=== PATIENT | female | born 1970 | race Two or more races ===

== ENCOUNTER → 2024-09-10 | Outpatient (CLI) | payer MEDICAID, SELFPAY ==
--- NOTE | 2024-09-10 11:45 | XR_ITS ---
Examination: Screening digital mammography, bilateral Computer aided detection 3-D breast Tomosynthesis, bilateral Date and time of exam: September 10, 1999 2512 noon Compared to mammograms dating to 05/19/2020 Indication: Screening Technique: Nonmagnified MLO, CC views of the breasts to been obtained, reconstructed from 3-D Tomosynthesis images. R2 computer aided detection program utilized for evaluation of suspicious masses and/or abnormal calcifications. 3-D Tomosynthesis images obtained. Findings: Scattered areas of fibroglandular density Benign calcifications No interval suspicious masses Impression: BI-RADS category II: Benign Findings. Recommend 1 year follow-up mammogram.
== END | disposition home or self-care (01) ==
PROVIDERS: PCP Physician Assistant; Referring Provider Physician Assistant; Visit Provider Physician Assistant
DX: Z12.31 Encounter for screening mammogram for malignant neoplasm of breast (principal); R92.323 Mammographic fibroglandular density, bilateral breasts; R92.1 Mammographic calcification found on diagnostic imaging of breast
CPT/HCPCS: 77063; 77067

== ENCOUNTER 2024-10-04 13:15 | Outpatient (AMB) | payer MEDICAID, SELFPAY ==
[2024-10-04 13:36] VITALS: BP 113/74; PULSE 91; RESP 18; TEMP 36.2; O2SAT 95; BMI 31.7
--- NOTE | 2024-10-04 13:36 | ORTHONT_ITS ---
Vital signs 10/04/24 13:36 Height 1.52 m Height Method Stated Weight 73.284 kg Weight Measurement Method Standing Scale BMI 31.7 BP 113/74 Blood Pressure Source Automatic Cuff Blood Pressure Location Right Upper Arm Position Sitting Respiration 18 Pulse 91 Pulse Source Monitor Temp 97.1 F Temp Source Temporal Artery Scan Pulse Oximetry (%) 95 Oxygen Delivery Method Room Air Med/Allergies Allergies & Medications Allergies No Known Allergies Allergy (Verified 10/04/24 13:37) Medication Reconciliation amlodipine 5 mg tablet 5 mg PO QDAY 09/20/19 [History Confirmed 10/04/24] cyclobenzaprine 10 mg tablet 10 mg PO QDAY 09/20/19 [History Confirmed 10/04/24] estradiol 2 mg tablet 2 mg PO QDAY 07/12/23 [History Confirmed 10/04/24] fluoxetine 10 mg capsule 10 mg PO QDAY 07/12/23 [History Confirmed 10/04/24] losartan 100 mg-hydrochlorothiazide 25 mg tablet 1 tab PO QDAY 07/12/23 [History Confirmed 10/04/24] meloxicam 7.5 mg tablet 7.5 mg PO BID #45 tabs 07/19/23 [Rx Confirmed 10/04/24] meloxicam 7.5 mg tablet 7.5 mg PO QDAY #45 tabs 10/04/23 [Rx Confirmed 10/04/24] Exam Exam Patient is in no acute distress and is cooperative with the examination today. Breathing is nonlabored. In no respiratory distress. Bilateral extremities were evaluated and demonstrates sensation intact to light touch. Palpable pedal pulses are present. No significant edema is present. Bilateral hips were examined. The patient has no pain with log roll of the hips. Internal rotation to 30 degrees and external rotation to 30 degrees is painless. Negative FADIR. The left knee was examined. The left knee is in varus alignment. Range of motion from 0-115 degrees. Knee is stable to varus and valgus as well as AP translation with <5mm. Patient has a negative McMurrays. There is no pain with patellofemoral compression and no crepitus noted. The knee is tender to palpation medially. The right knee was also examined. The right knee is in varus alignment. Range of motion from 0-120 degrees. Knee is stable to varus and valgus as well as AP translation with <5mm. Patient has a negative McMurrays. There is no pain with patellofemoral compression and no crepitus noted. The knee is tender to palpation medially \ Left knee x-rays were personally reviewed by me as well as right knee x-rays. This demonstrates significant joint space narrowing medially. There are significant osteophytes. Assessment and Plan Problem List (1) Unilateral primary osteoarthritis, left knee: Status: Acute Plan: Patient is a 52-year-old female with bilateral knee pain and osteoarthritis. We discussed nonoperative and operative options. She has failed conservative treatment on the left including NSAIDs, and multiple injections. We will plan for a left total knee replacement. We will also inject her right knee as it has been responding cortisone Recommend knee cortisone injection as patient would like to proceed with conservative treatment at this time. The risks and benefits of the procedure were reviewed with the patient and patient gave verbal consent to continue with the procedure. Procedure: performed by Dr. Reynoso Using sterile technique the Right knee was thoroughly prepped with alcohol, and approximately 1 cc of Kenalog 40 mg/mL and 4 cc of 1% lidocaine was injected without resistance into the medial tibial femoral joint space. The patient tolerated the procedure. The nature and purpose of the total knee replacement, alternative method(s) of treatment, the material risks involved, and the possibility of complications were fully explained to the patient. The patient does NOT have any of the following contraindications to TKA: - Active infection of the knee joint, OR - Active systemic bacteremia, OR - Active skin infection or open wound at surgical site, OR - Neuropathic arthritis, OR - Severe, rapidly progressive neurological disease, OR - Severe medical condition that makes risks of surgery outweigh the potential benefit The patient was told the most common risks and complications associated with a total knee replacement include, but are not limited to: blood clots in the leg, fatal pulmonary embolism, dislocation of the prosthesis, intraoperative and postoperative fractures of the femur or tibia, infection, failure of the prosthesis or grafting materials, complications from anesthesia, reactions to blood transfusions, postoperative leg length inequality, instability of the knee replacement, nerve damage or injury, vascular injury, delayed wound healing, infection, other injury or even . In addition, there are risks associated with anesthesia given during this operation. Also, the patient was told that after undergoing a total knee replacement there may still be persistent pain or disability. The patient was informed that the success of this operation in part depends upon the mechanical devices which are going to be implanted and that these devices can fail or malfunction, and may need to be repaired or replaced and there are no guarantees as to the longevity of this device or its parts and that it or its parts could fail prematurely. The patient was also notified that during the course of surgery, there may be a need to use bone graft from donors, and that any bone graft used will be carefully screened for communicable diseases, including AIDS, hepatitis, Braxton-Creutzfeldt, or other diseases, but despite the screening procedures, there is a small chance that they could contract one of these diseases. Finally, the patient was asked to follow completely and fully with all advice and recommended treatments, and that recovery and ultimate outcome are affected by their compliance with recommended treatment. We discussed the risks, benefits and treatment alternatives, and the patient is interested in proceeding with surgery. We will try to set this up as expeditiously as possible. (2) Arthritis of both knees: Status: Acute Office Procedures GNS Level of Care Nursing/Assessment Patient Status: Established Patient Nursing Assessment/Reassesment: Medication Reconciliation, Update PMH in EMR and Vital Signs Coordination of Care: Complex Care and Chronic Disease 1-5, Education Complex Pt/Fam, Consent,records obtained, informed consent, Results/Orders obtained and Staff clarify orders Special Needs: Language special needs Established Patient Charge Established Patient Point Assignment: 95 Established Patient Point Charge: EP Level 3 (80-115) Surgical Proc/IM SQ injection Major Surgical Procedure: Yes (KNEE INJECTION) Medication Given Medication Given Medication Given: Yes Documented Dose Given: 4 Route: Infiitration Medication Given Medication Given Medication Given: Yes Documented Dose Given: 1 Route: Infiitration Office Meds Xylocaine 10 mg/mL (1 %) injection solution Performing Provider: Jose Reynoso MD Performing Location: [facility] Administered by: Jose Reynoso MD on 10/04/24 14:22 Dose Route Admin Location Dispensed Lot Number Expiration Date [facility] 20 mL Infiltration 20 mL triamcinolone acetonide 40 mg/mL suspension for injection Performing Provider: Jose Reynoso MD Performing Location: [facility] Administered by: Jose Reynoso MD on 10/04/24 14:22 Dose Route Admin Location Dispensed Lot Number Expiration Date [facility] 40 mg intra-articular RIGHT KNEE 1 mL [id number] 12/20/25 2492-2771-40 [facility] [place] Intake Visit Data Collection New Patient or Established: Established Patient (seen at [facility] within 3 years) Reason for Visit:: KNEE PAIN Seen by Clinical Staff ONLY (RN/MA): No Verbal consent obtained for Telemed visit?: No 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 PCP or OBGYN visit in last 3 months: Yes Hx Now: No Do You Feel Safe at Home: Yes Authorities Contacted: N/A Questionairres Past Medical History Past Medical History Have you ever been diagnosed with any of the following: Neurological Problems Seizures: No Cardiology Problems Congestive Heart Failure: No Hypertension: Yes Hypotension: Yes Respiratory Problems Chronic Obstructive Pulmonary Disease (COPD): No Genital/Urinary Problems Renal Disease: No Musculoskeletal Problems Arthritis: Yes Endocrine Problems Diabetes Mellitus Type 1: No Diabetes Mellitus Type 2: No Psychologic Problems Anxiety: Yes Other Problems Blood Transfusions: No Anesthesia Reactions: No Cancer: No Surgical History Hysterectomy: Yes Subjective Visit Visit for: follow up visit and knee Immunization / Flu Flu Vaccine in the Last 12 Months: Yes Flu Vaccine Exclusion Criteria: No Exclusion Criteria History of Present Illness Chief complaint: KNEE PAIN Chava is a pleasant 52-year-old female that presents today for evaluation of her bilateral knees. The pain has been ongoing for a while. She previously tried multiple injections in the left knee. She has tried anti-inflammatories that irritate her stomach. She is also tried physical therapy. The left knee pain is worse than the right. She has no diabetes. The last injections did not work on the left but helped for the right. She has also tried NSAIDS. Personal History Red flag PMH: BMI BMI Counceling provided: Yes Pain Pain level (0-10): 10 Pain duration: ALL DAY Pain location: inside (medial), outside (lateral) and anterior Pain quality: sharp, dull and aching Pain timing: increases with activity Associated signs & symptoms: numbness and stiffness Review of Systems Review of Systems: All systems negative unless otherwise noted in HPI.
== END 2024-10-04 14:02 | disposition home or self-care (01) ==
LOC: HODSRG 13:15
PROVIDERS: PCP Physician Assistant; Referring Provider Physician Assistant; Supervising Provider Orthopaedic Surgery Adult Reconstructive Orthopaedic Surgery; Visit Provider Orthopaedic Surgery Adult Reconstructive Orthopaedic Surgery
DX: M17.0 Bilateral primary osteoarthritis of knee (principal); M25.562 Pain in left knee; M25.561 Pain in right knee; I10 Essential (primary) hypertension
CPT/HCPCS: 20610; 99213; J3301; J3490; G0463

== ENCOUNTER → 2024-10-30 | Outpatient (CLI) | payer MEDICAID, SELFPAY ==
--- NOTE | 2024-10-30 09:00 | XR_ITS ---
EXAMINATION: XR barium enema w/air contrast HISTORY: 54-year-old with possible colonic lesions and right upper quadrant pain x6 months COMPARISON: CT abdomen pelvis of 10/11/2014. TECHNIQUE: Initial private equity associate radiograph of the abdomen and pelvis was performed. A smallbore tube was placed into the rectum. The colon was then filled retrograde with 1440 cc of Gastrografin via gravity under fluoroscopy. Following this, air was injected to create double contrast appearance. Multiple spot radiographs of the abdomen and pelvis in different obliquities were then performed after gravity drainage of contrast. Examination is suboptimal as per rectum barium was not available. FLUOROSCOPY TIME: 4.2 min AIR KERMA: 495.08 mGy FINDINGS: Group Insurance Special Agent radiograph demonstrates nonobstructive bowel gas pattern. There are no abnormal calcifications. There are moderate degenerative changes of the lumbar spine with some mild levoconvex curvature. There is no pneumoperitoneum identified. No strictures identified. No internal or external mass effect. Contrast extends into the nondilated appendix. Normal haustral folds identified. Contrast refluxes into the terminal ileum. IMPRESSION: 1. No stricture, internal mass effect, or external mass effect. 2. Recommend correlation with direct visualization versus CT colonography
== END | disposition home or self-care (01) ==
PROVIDERS: PCP Physician Assistant; Referring Provider Internal Medicine Gastroenterology; Visit Provider Internal Medicine Gastroenterology
DX: Z12.11 Encounter for screening for malignant neoplasm of colon (principal); R10.11 Right upper quadrant pain; R10.13 Epigastric pain
CPT/HCPCS: 74280; Q9963

== ENCOUNTER 2025-01-04 08:43 | Outpatient (AMB) | payer MEDICAID, SELFPAY ==
[2025-01-04 08:57] VITALS: BP 125/84; PULSE 93; RESP 18; TEMP 36.4; O2SAT 92; BMI 32.0
--- NOTE | 2025-01-04 08:57 | PD.ORTHCLVIS ---
Vital signs 01/04/25 08:57 Height 1.52 m Height Method Stated Weight 74.049 kg Weight Measurement Method Standing Scale BMI 32.0 BP 125/84 Blood Pressure Source Automatic Cuff Blood Pressure Location Left Upper Arm Position Sitting Respiration 18 Pulse 93 Pulse Source Monitor Temp 97.5 F Temp Source Temporal Artery Scan Pulse Oximetry (%) 92 L Oxygen Delivery Method Room Air Med/Allergies Allergies & Medications Allergies No Known Allergies Allergy (Verified 01/04/25 08:58) Exam Exam Patient is in no acute distress and is cooperative with the examination today. Breathing is nonlabored. In no respiratory distress. Bilateral extremities were evaluated and demonstrates sensation intact to light touch. Palpable pedal pulses are present. No significant edema is present. Bilateral hips were examined. The patient has no pain with log roll of the hips. Internal rotation to 30 degrees and external rotation to 30 degrees is painless. Negative FADIR. The left knee was examined. The left knee is in varus alignment. Range of motion from 0-115 degrees. Knee is stable to varus and valgus as well as AP translation with <5mm. Patient has a negative McMurrays. There is no pain with patellofemoral compression and no crepitus noted. The knee is tender to palpation medially. The right knee was also examined. The right knee is in varus alignment. Range of motion from 0-120 degrees. Knee is stable to varus and valgus as well as AP translation with <5mm. Patient has a negative McMurrays. There is no pain with patellofemoral compression and no crepitus noted. The knee is tender to palpation medially \ Left knee x-rays were personally reviewed by me as well as right knee x-rays. This demonstrates significant joint space narrowing medially. There are significant osteophytes. Assessment and Plan Problem List (1) Unilateral primary osteoarthritis, left knee: Status: Acute Plan: Patient is a 52-year-old female with bilateral knee pain and osteoarthritis. We discussed nonoperative and operative options. She has failed conservative treatment on the left including NSAIDs, and multiple injections. We will plan for a left total knee replacement. She has failed conservative treatment occluding injections and formal physical therapy The nature and purpose of the total knee replacement, alternative method(s) of treatment, the material risks involved, and the possibility of complications were fully explained to the patient. The patient does NOT have any of the following contraindications to TKA: - Active infection of the knee joint, OR - Active systemic bacteremia, OR - Active skin infection or open wound at surgical site, OR - Neuropathic arthritis, OR - Severe, rapidly progressive neurological disease, OR - Severe medical condition that makes risks of surgery outweigh the potential benefit The patient was told the most common risks and complications associated with a total knee replacement include, but are not limited to: blood clots in the leg, fatal pulmonary embolism, dislocation of the prosthesis, intraoperative and postoperative fractures of the femur or tibia, infection, failure of the prosthesis or grafting materials, complications from anesthesia, reactions to blood transfusions, postoperative leg length inequality, instability of the knee replacement, nerve damage or injury, vascular injury, delayed wound healing, infection, other injury or even . In addition, there are risks associated with anesthesia given during this operation. Also, the patient was told that after undergoing a total knee replacement there may still be persistent pain or disability. The patient was informed that the success of this operation in part depends upon the mechanical devices which are going to be implanted and that these devices can fail or malfunction, and may need to be repaired or replaced and there are no guarantees as to the longevity of this device or its parts and that it or its parts could fail prematurely. The patient was also notified that during the course of surgery, there may be a need to use bone graft from donors, and that any bone graft used will be carefully screened for communicable diseases, including AIDS, hepatitis, Braxton-Creutzfeldt, or other diseases, but despite the screening procedures, there is a small chance that they could contract one of these diseases. Finally, the patient was asked to follow completely and fully with all advice and recommended treatments, and that recovery and ultimate outcome are affected by their compliance with recommended treatment. We discussed the risks, benefits and treatment alternatives, and the patient is interested in proceeding with surgery. We will try to set this up as expeditiously as possible. (2) Arthritis of both knees: Status: Acute Office Procedures GNS Level of Care Nursing/Assessment Patient Status: Established Patient Nursing Assessment/Reassesment: Medication Reconciliation, Update PMH in EMR and Vital Signs Coordination of Care: Complex Care and Chronic Disease 1-5, Education Complex Pt/Fam, Consent,records obtained, informed consent, Results/Orders obtained and Staff clarify orders Special Needs: Language special needs Established Patient Charge Established Patient Point Assignment: 95 Established Patient Point Charge: EP Level 3 (80-115) MA Intake Visit Data Collection New Patient or Established: Established Patient (seen at [facility] within 3 years) Reason for Visit:: PRE OP L TKA Seen by Clinical Staff ONLY (RN/MA): No 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 PCP or OBGYN visit in last 3 months: Yes Hx Now: No Do You Feel Safe at Home: Yes Authorities Contacted: N/A Questionairres Past Medical History Past Medical History Have you ever been diagnosed with any of the following: Neurological Problems Seizures: No Cardiology Problems Congestive Heart Failure: No Hypertension: Yes Hypotension: Yes Respiratory Problems Chronic Obstructive Pulmonary Disease (COPD): No Genital/Urinary Problems Renal Disease: No Musculoskeletal Problems Arthritis: Yes Endocrine Problems Diabetes Mellitus Type 1: No Diabetes Mellitus Type 2: No Psychologic Problems Anxiety: Yes Other Problems Blood Transfusions: No Anesthesia Reactions: No Cancer: No Surgical History Hysterectomy: Yes Subjective Visit Visit for: follow up visit and knee Immunization / Flu Flu Vaccine in the Last 12 Months: Yes Flu Vaccine Exclusion Criteria: No Exclusion Criteria History of Present Illness Chief complaint: KNEE PAIN Chava is a pleasant 52-year-old female that presents today for evaluation of her bilateral knees. The pain has been ongoing for a while. She previously tried multiple injections in the left knee. She has tried anti-inflammatories that irritate her stomach. She has also tried physical therapy. The left knee pain is worse than the right. Her previous surgery was denied on the left knee because the insurance denied it because they confused the right and left knee. She has been 3 months without an injection She has no diabetes. The last injections did not work on the left but helped for the right. She has also tried NSAIDS. Personal History Red flag PMH: BMI BMI Counceling provided: Yes Pain Pain level (0-10): 10 Pain duration: ALL DAY Pain location: inside (medial), outside (lateral) and anterior Pain quality: sharp, dull and aching Pain timing: increases with activity Associated signs & symptoms: numbness and stiffness Review of Systems Review of Systems: All systems negative unless otherwise noted in HPI.
== END 2025-01-04 09:18 | disposition home or self-care (01) ==
LOC: HODSRG 08:43
PROVIDERS: PCP Physician Assistant; Referring Provider Physician Assistant; Supervising Provider Orthopaedic Surgery Adult Reconstructive Orthopaedic Surgery; Visit Provider Orthopaedic Surgery Adult Reconstructive Orthopaedic Surgery
DX: M17.0 Bilateral primary osteoarthritis of knee (principal); M25.562 Pain in left knee; M25.561 Pain in right knee; I10 Essential (primary) hypertension
CPT/HCPCS: 99213; G0463

== ENCOUNTER → 2025-01-04 | Outpatient (CLI) | payer MEDICAID, SELFPAY ==
--- NOTE | 2025-01-04 09:55 | XR_ITS ---
Examination: CT left lower extremity, without contrast. 2-D sagittal reconstructions. 2-D coronal reconstructions. 3-D reconstructions. Date and time of exam:January 04, 2025 10:18 AM INDICATIONS: Diagnosis unilateral primary osteoarthritis left knee left knee pain 10 years CTDI: vol (mGy):10.4 DLP: (mGycm):788 Technique: Multiple 1.25 mm axial sections of the left lower extremity without intravenous contrast have been obtained. 2-D sagittal and coronal reconstructions have been obtained. 3-D reconstructions have been obtained. Low dose protocols were performed. One or more of the following dose reduction techniques were used; automated exposure control, adjustment of the mA and/or KV according to patient size, use of iterative reconstruction technique. Findings: Moderate osteopenia Mild to moderate narrowing left hip joint No left hip fracture Severe narrowing medial joint space left knee Advanced osteoarthritis also lateral and patellofemoral joints No knee fractures IMPRESSION: Advanced left knee tricompartment osteoarthritis including severe narrowing medial joint space
== END | disposition home or self-care (01) ==
PROVIDERS: PCP Physician Assistant; Referring Provider Orthopaedic Surgery Adult Reconstructive Orthopaedic Surgery; Visit Provider Orthopaedic Surgery Adult Reconstructive Orthopaedic Surgery
DX: M17.12 Unilateral primary osteoarthritis, left knee (principal); M25.862 Other specified joint disorders, left knee
CPT/HCPCS: 73700

== ENCOUNTER 2025-01-23 05:50 | Day surgery (SDC) | payer MEDICAID, SELFPAY ==
[2025-01-22 07:04] VITALS: BMI 35.6
[2025-01-22 09:54] LABS: Basophils % (Auto) 0 % (0-2.5); Eosinophils # (Auto) 0.3 Thou/mm3 (0.0-0.5); Eosinophils % (Auto) 3 % (0-10); Hematocrit 36.1 % (36.0-46.0); Hemoglobin 11.7 g/dL (12.0-16.0); Immature Granulocytes % (Auto) 0 % (0-0); Immature Granulocytes Auto 0.01 Thou/mm3 (0.00-0.00); Lymphocytes # (Auto) 2.7 Thou/mm3 (1.0-4.8); Lymphocytes % (Auto) 36 % (10-50); Mean Corpuscular HGB Conc 32.4 g/dl (31.0-37.0); Mean Corpuscular Hemoglobin 30.5 pg (25.0-35.0); Mean Corpuscular Volume 94 fL (80-100); Monocytes # (Auto) 0.5 Thou/mm3 (0.0-0.8); Monocytes % (Auto) 7 % (0-12); Neutrophils # (Auto) 3.9 Thou/mm3 (1.8-7.7); Neutrophils % (Auto) 53 % (37-80); Nucleated Red Blood Cell % 0 /100 WBC (0); Platelet Count 288 Thou/mm3 (140-440); Red Blood Count 3.84 Miln/mm3 (4.00-5.20); White Blood Count 7.4 Thou/mm3 (3.6-11.0)
[2025-01-22 09:57] LABS: INR 0.9 (0.9-1.3); Partial Thromboplastin Time 28.5 Seconds (22.0-36.0); Prothrombin Time 10.3 Seconds (9.0-12.2)
[2025-01-22 10:22] LABS: Alanine Aminotransferase 14 U/L (10-49); Albumin, Serum 4.1 gm/dL (3.5-5.0); Alkaline Phosphatase 72 U/L (46-116); Anion Gap 8 (7-16); Aspartate Amino Transferase 14 U/L (0-34); BUN/Creatinine Ratio 25 Ratio (12-20); Bilirubin,Total 0.4 mg/dL (0.3-1.2); Blood Urea Nitrogen 15 mg/dL (9-23); Calcium 9.3 mg/dL (8.3-10.6); Calcium (Corrected) 9.3 mg/dL (8.5-10.1); Carbon Dioxide 30.5 mMol/L (20.0-31.0); Chloride 100 mMol/L (98-107); Creatinine (Component) 0.6 mg/dL (0.6-1.3); Estimated Creatinine Clearance 87.6 mL/min (>60); Globulin 2.1 gm/dL (2.3-3.5); Glucose 98 mg/dL (74-106); Osmolality,Calculated 276 (275-295); Potassium 3.5 mMol/L (3.4-5.1); Sodium 138 mMol/L (136-145); Total Protein 6.2 gm/dL (5.7-8.2); eGFR > 60 See Note
--- NOTE | 2025-01-22 14:11 | SUR.PREOP ---
Pt notified to come in tomorrow at 0545.
[2025-01-23] VITALS (17 sets, daily range): BP systolic 98–127; BP diastolic 60–85; PULSE 78–108; RESP 13–20; TEMP 36.2–36.8; O2SAT 90–97; BMI 34.3; BMI 15.0
[2025-01-23] MEDS: MELOXICAM 7.5 MG TABLET PO (06:36)
[2025-01-23] MEDS: PREGABALIN 75 MG CAPSULE PO (06:36)
[2025-01-23] MEDS: ACETAMINOPHEN 325 MG TABLET 650 MG PO (06:37)
--- NOTE | 2025-01-23 09:02 | PD.SUROPNT ---
Date of Procedure 01/23/25 Pre Op Diagnosis left knee osteoarthritis Post Op Diagnosis left knee osteoarthritis Procedure left total knee replacement Findings full thickness cartilage loss and osteophytes Procedure Description Indication: The patient is a 54 year old who has a long history of left knee pain. X-rays show degenerative arthritis involving the knee. Over the past several years the patient has had increasing pain, progressive limitation in function. He has failed conservative measures including activity modification, physical therapy, injections, anti-inflammatories, and assistive devices. After a lengthy discussion of the risks and benefits, the patient presents now for total knee replacement. The nature and purpose of the total knee replacement, alternative method(s) of treatment, the material risks involved, and the possibility of complications were fully explained to the patient. The patient was told the most common risks and complications associated with a total knee replacement include, but are not limited to blood clots in the leg, fatal pulmonary embolism, dislocation of the prosthesis, intraoperative and postoperative fractures of the femur or tibia, infection, failure of the prosthesis or grafting materials, complications from anesthesia, reactions to blood transfusions, postoperative leg length inequality, instability of the knee replacement, nerve damage or injury, vascular injury, delayed wound healing, infections, other injury or even . In addition, there are risks associated with anesthesia given during this operation, temporary or permanent numbness on the skin lateral to the incision can be a complication unique to total knee surgery, and kneeling can be painful after knee replacement surgery. Also, the patient was told that after undergoing a total knee replacement there may still be pain or disability. We discussed with the patient that we will be using a robot-assisted technology. We discussed that there is a possibility of converting to manual instrumentation. The patient was informed that the success of this operation in part depends upon the mechanical devices which are going to be implanted and that these devices can fail or malfunction, and may need to be repaired or replaced and there are no guarantees as to the longevity of this device or its part and that it or its parts could fail prematurely. Finally, the patient was asked to follow completely and fully with all advice and recommended treatments, and that recovery and ultimate outcome are affected by their compliance with recommended treatment. Surgical technique: Patient was marked and consented in the pre-operative area. The patient was brought to the operating room and placed on the operating table in a supine position. Prior to positioning, a timeout procedure was performed between the surgeon, the anesthesiologist, and the nursing staff where the patient and the operative side were identified and confirmed. After adequate general anesthetic was obtained, the left lower extremity was prepped and draped in the usual sterile fashion. A weight based dose of Cefazolin were administered within 1 hour prior to incision. The robot was preregistered and calirated before the incision. The extremity was exsanguinated with an esmarch badge and tourniquet inflated to 250mmHg. A midline incision was made. A median parapatellar arthrotomy was made. The patella was subluxed laterally. A medial release was performed to expose the medial tibia. His femoral and tibial pins were placed through an intra incisional manner for both cases. Every effort was made to ensure that the distalmost aspect of the pin was hung in the second cortex. The arrays were then tightened several times to ensure that it was fixed for the remainder of the case. Both femoral and tibial checkpoints were then placed. We then went through the registration process of the bone. We then assessed the knee deformity and attempted to correct it. We also used the robot to aid in judging laxity in both extension and flexion. Final based on laxity and alignment we changed the preoperative assessment to obtain proper proper implant positioning and to correct deformity. Attention was then placed to the tibia. We made a tibial cut using the robot ensuring that both the MCL and the patella tendon were protected with retractors. We then went to the femur and made the posterior cut followed by the anterior cut and the anterior chamfer. The bone was then removed and we made a distal femur cut and a posterior chamfer cut. We verified all cuts. A trial reduction was performed with a size 1 femoral component and a size 1 keeled tibial component. The patella tracked centrally, and no lateral retinacular release was necessary. The trial implants were removed. The arrays, pins, and checkpoints were all removed. We performed a verification that all pins were removed. The cut bone surfaces were lavaged. A size 1 left femoral component, a size 1 keeled tibial component were impacted into position. The knee was felt to be well balanced in the sagittal and coronal plane. The final [2x12] mm cruciate-substituting articular insert was impacted into the tibial tray. The knee was brought out to full extension, flexed up to 120 degrees. It was stable to varus and valgus stress and appropriately balanced in flexion and extension. The wounds were copiously irrigated following deflation of tourniquet. The medial retinaculum was reapproximated with #1 vicryl and quill. The subcutaneous tissues were closed with 0 and 2-0 interrupted Vicryl. The skin was closed with 3-0 Monofilament V loc suture. A sterile dressing was applied. The patient was transferred to a bed and brought to recovery in stable condition. The patient tolerated the procedure well. There were no intraoperative complications. Sponge and needle counts were correct times 2. As the attending surgeon, Laverne artis I was present and performed the entire operation. Grafts/Implants Size 1 CR Femur Size 1 Tibia 10mm poly CS Anesthesia spinal Implants claudia Pathology / specimen None Pathology comment: none Estimated Blood Loss 150 Condition Stable Disposition same day Surgeon Jose Reynoso MD Surgical Staff Operation Date: 01/23/25 07:30 Case Staff Anesthesiologist: Pravin Pfeiffer RNvocal music teacher: Elin Hsieh
--- NOTE | 2025-01-23 09:04 | XR_ITS ---
Examination: Left knee 2 views Technique one AP lateral left knee 2 views supine Date and time: January 23, 2025 0948 hours INDICATIONS: Postop knee replacement FINDINGS: Total left knee replacement Satisfactory alignment Moderate osteopenia No fracture IMPRESSION: Total left knee arthroplasty with satisfactory alignment
--- NOTE | 2025-01-23 09:22 | SUR.PHASEI ---
0922: Pt. AAOx4, vitals stable, breathing unlabored, no complaint of pain or nausea, dressing to left knee CDI, no active bleed noted, pt. able to move bilateral feet, cap refill to bilateral feet less than 3 seconds, bilateral dorsalis pedis pulses strong and regular, report received from MD Pfeiffer and Alan SY.
--- NOTE | 2025-01-23 10:10 | SUR.PHASEII ---
1010: Report given to Becky SY to resume care. Pt. AAOx4, vitals stable, breathing unlabored, no complaint of pain or nausea, dressing to left knee CDI, no active bleed noted.
--- NOTE | 2025-01-23 10:17 | SUR.PHASEII ---
1010: Assumed care. Pt retin
--- NOTE | 2025-01-23 10:18 | SUR.PHASEII ---
1010: Assumed care. Pt resting with no complaints voiced. Pt awake, alert. VS stable. Dressing to left knee dry, clean, intact. Bilateral pedal pulses strong, regular. Pt has sensation to left foot and can wiggle foot. Pt tolerating po fluids with no difficulty swallowing and no n/v.
--- NOTE | 2025-01-23 11:20 | SUR.PHASEII ---
1110: Pt needing to void. Refused to use bedpan. Stated she had total feeling to legs. Attempted to sit on edge of bed. Pt slid down to floor. Staff at side and assisted pt to floor. Pt denies any injury. Pt voided on self unable to hold urine. Pt assisted back on gurney and clean bedding and gown provided. Will provide external catheter.
--- NOTE | 2025-01-23 12:32 | SUR.PHASEII ---
1230: Pt has been resting with no complaints voiced. VS stable. Dressing remains dry, clean, intact. Bilateral pedal pulses strong, regular. Pt sitting up tolerating lunch meal with no difficulty swallowing and no n/v.
--- NOTE | 2025-01-23 13:13 | SUR.PHASEII ---
1310: Pt has been resting with no complaints voiced. VS stable. Pt consumed 100% of lunch meal.
--- NOTE | 2025-01-23 13:38 | SUR.PHASEII ---
1335: Physical Therapist here to assess pt.
--- NOTE | 2025-01-23 13:50 | SUR.PHASEII ---
pt awake, alert, able to follow commands, pt sitting up in bed working with Physical Therapist Royer, report from Becky SY
--- NOTE | 2025-01-23 13:55 | SUR.PHASEII ---
pt cleared from Physical Therapy, will review discharge instructions with pt and spouse
--- NOTE | 2025-01-23 14:14 | SUR.PHASEII ---
Discharge instructions given using telephone podiatric technician Flaco ID# [id number], all questions answered, pt and spouse verbalize understanding of discharge instructions. Report to Becky SY
--- NOTE | 2025-01-23 17:02 | SUR.PHASEII ---
1416: Pt provided with discharge instructions by Josue SY and engraver picture via phone line. Pt discharged from [facility] in stable condition.
--- NOTE | 2025-01-26 11:36 | PD.ANESPROG ---
Documentation for date of: 01/26/25 POST ANESTHESIA NOTE: Patient had spinal anesthesia and L adductor block for L TKA on 01/23/15. I called her number for follow up but no answer. Pravin Pfeiffer MD Anesthesia Progress Note Progress Note Most recent Vital Signs: Last Vital Signs Temp 97.8 F 01/23/25 13:30 Pulse 108 H 01/23/25 13:30 Resp 14 01/23/25 13:30 BP 122/85 H 01/23/25 13:30 Pulse Ox 95 01/23/25 13:30 O2 Flow Rate 2 01/23/25 10:45
== END 2025-01-23 14:16 | disposition home or self-care (01) ==
PROVIDERS: Anesthesiology; PCP Physician Assistant; Referring Provider Orthopaedic Surgery Adult Reconstructive Orthopaedic Surgery; Visit Provider Orthopaedic Surgery Adult Reconstructive Orthopaedic Surgery
PROC: (CPT 27447; principal; 2025-01-23 07:30)
DX: M17.12 Unilateral primary osteoarthritis, left knee (principal); M25.761 Osteophyte, right knee
CPT/HCPCS: 27447; 20985; 36415; 73560; 80053; 85025; 85610; 85730; 97162; A4217; C1713; C1776; J0690; J1100; J2250; J2371; J2704; J2795; J3010; J3490; J7030; J7999; A4648; A4649; A9270

== ENCOUNTER 2025-02-07 09:26 | Outpatient (AMB) | payer MEDICAID, SELFPAY ==
[2025-02-07 09:49] VITALS: BP 130/78; PULSE 98; RESP 18; TEMP 36.1; BMI 32.4
--- NOTE | 2025-02-07 09:49 | ORTHONT_ITS ---
Vital signs 02/07/25 09:49 Height 1.52 m Height Method Stated Weight 75.013 kg Weight Measurement Method Standing Scale BMI 32.4 BP 130/78 Blood Pressure Source Automatic Cuff Blood Pressure Location Right Upper Arm Position Sitting Respiration 18 Pulse 98 Pulse Source Monitor Temp 96.9 F Temp Source Temporal Artery Scan Oxygen Delivery Method Room Air Med/Allergies Allergies & Medications Allergies No Known Allergies Allergy (Verified 01/23/25 10:16) Exam Exam Patient is in no acute distress and is cooperative with the examination today. Patient has a normal mood and affect. Breathing is nonlabored. In no respiratory distress. Bilateral extremities were evaluated and demonstrates sensation intact to light touch. Palpable pedal pulses are present. No significant edema is present. Left knee incision is clean dry intact Assessment and Plan Problem List (1) Unilateral primary osteoarthritis, left knee: Status: Acute Plan: Patient is a 52-year-old female with bilateral knee pain and osteoarthritis. She is status post left total knee replacement and is doing well (2) Arthritis of both knees: Status: Acute Office Procedures GNS Level of Care Nursing/Assessment Patient Status: Established Patient Nursing Assessment/Reassesment: Medication Reconciliation, Update PMH in EMR and Vital Signs Coordination of Care: Complex Care and Chronic Disease 1-5, Education Complex Pt/Fam, Consent,records obtained, informed consent, Lab and Imaging orders, Results/Orders obtained and Staff clarify orders Special Needs: Language special needs Established Patient Charge Established Patient Point Assignment: 110 Established Patient Point Charge: EP Level 3 (80-115) MA Intake Visit Data Collection New Patient or Established: Established Patient (seen at [facility] within 3 years) Reason for Visit:: 2 WEEK POST OP TKA Seen by Clinical Staff ONLY (RN/MA): No Verbal consent obtained for Telemed visit?: No Manager Sourcing Required: Yes PCP or OBGYN visit in last 3 months: Yes Hx Now: No Do You Feel Safe at Home: Yes Authorities Contacted: N/A Questionairres Past Medical History Past Medical History Have you ever been diagnosed with any of the following: Neurological Problems Seizures: No Cardiology Problems Congestive Heart Failure: No Hypertension: Yes Hypotension: Yes Varicose Veins: Yes Respiratory Problems Chronic Obstructive Pulmonary Disease (COPD): No Stomache/Intestinal Problems Hepatitis: No Genital/Urinary Problems Renal Disease: No Reproductive Problems Previous Pregnancies: No Musculoskeletal Problems Arthritis: Yes Fibromyalgia: Yes Endocrine Problems Diabetes Mellitus Type 1: No Diabetes Mellitus Type 2: No Psychologic Problems Depression: Yes Anxiety: Yes Other Problems Hospitalization: No Shingles: No Blood Transfusions: No Anesthesia Reactions: Yes (severe nausea) Cancer: No Surgical History Hysterectomy: Yes Subjective Visit Visit for: follow up visit, post op #1 and knee Immunization / Flu Flu Vaccine in the Last 12 Months: No Flu Vaccine Exclusion Criteria: No Exclusion Criteria History of Present Illness Chief complaint: 2 WEEK POST OP Date of 1st surgery (if applicable): 01/23/2025 Chava is a pleasant 52-year-old female that presents today for evaluation of her bilateral knees. She is doing well status post total knee replacement Personal History Occupation: DISABLED Red flag PMH: BMI BMI Counceling provided: Yes Pain Pain level (0-10): 6 Pain duration: ALL DAY Pain location: inside (medial), outside (lateral), anterior and posterior Pain quality: sharp, dull and aching Pain timing: increases with activity Associated signs & symptoms: numbness Ambulatory data Ambulatory device: walker Treatments Improvement with previous injections: No Improvement with PT: No Improvement with NSAIDS: no Review of Systems Review of Systems: All systems negative unless otherwise noted in HPI.
== END 2025-02-07 09:48 | disposition home or self-care (01) ==
LOC: HODSRG 09:26
PROVIDERS: PCP Physician Assistant; Referring Provider Physician Assistant; Supervising Provider Orthopaedic Surgery Adult Reconstructive Orthopaedic Surgery; Visit Provider Orthopaedic Surgery Adult Reconstructive Orthopaedic Surgery
DX: M17.0 Bilateral primary osteoarthritis of knee (principal); Z96.652 Presence of left artificial knee joint; I10 Essential (primary) hypertension
CPT/HCPCS: 99213; G0463

== ENCOUNTER 2025-03-14 10:52 | Outpatient (AMB) | payer MEDICAID, SELFPAY ==
--- NOTE | 2025-03-14 11:06 | ORTHONT_ITS ---
Vital signs 03/14/25 11:07 Height 1.52 m Height Method Stated Weight 74.531 kg Weight Measurement Method Standing Scale BMI 32.2 BP 125/83 Blood Pressure Source Automatic Cuff Blood Pressure Location Left Upper Arm Position Sitting Respiration 18 Pulse 93 Pulse Source Monitor Temp 97.7 F Temp Source Temporal Artery Scan Pulse Oximetry (%) 96 Oxygen Delivery Method Room Air Med/Allergies Allergies & Medications Allergies No Known Allergies Allergy (Verified 03/14/25 11:07) Medication Reconciliation amlodipine 5 mg tablet 5 mg PO QDAY 09/20/19 [History Confirmed 03/14/25] estradiol 2 mg tablet 2 mg PO QDAY 07/12/23 [History Confirmed 03/14/25] losartan 100 mg-hydrochlorothiazide 25 mg tablet 1 tab PO QDAY 07/12/23 [History Confirmed 03/14/25] aspirin 81 mg tablet,delayed release 81 mg PO BID #60 tabs 01/23/25 [Rx Confirmed 03/14/25] doxycycline hyclate 100 mg tablet 100 mg PO BID #14 tabs 01/23/25 [Rx Confirmed 03/14/25] gabapentin 300 mg capsule 300 mg PO .qhs #30 caps 01/23/25 [Rx Confirmed 03/14/25] sennosides 8.6 mg-docusate sodium 50 mg tablet (Senna-S) 1 tab-cap PO QDAY #30 tabs 01/23/25 [Rx Confirmed 03/14/25] hydrocodone 7.5 mg-acetaminophen 325 mg tablet 1 tab PO Q6H PRN pain #28 tabs 02/07/25 [Rx Confirmed 03/14/25] Exam Exam Patient is in no acute distress and is cooperative with the examination today. Patient has a normal mood and affect. Breathing is nonlabored. In no respiratory distress. Bilateral extremities were evaluated and demonstrates sensation intact to light touch. Palpable pedal pulses are present. No significant edema is present. Left knee incision is clean dry intact. ROM 0-100 degrees Assessment and Plan Problem List (1) Arthritis of both knees: Status: Acute (2) Unilateral primary osteoarthritis, left knee: Status: Acute Plan: Patient is a 52-year-old female with bilateral knee pain and osteoarthritis. She is status post left total knee replacement and is doing well. Her range of motion is great and we will discuss doing the right side at the next visit Office Procedures GNS Level of Care Nursing/Assessment Patient Status: Established Patient Nursing Assessment/Reassesment: Medication Reconciliation, Update PMH in EMR and Vital Signs Coordination of Care: Complex Care and Chronic Disease 1-5, Education Complex Pt/Fam, Consent,records obtained, informed consent, Results/Orders obtained and Staff clarify orders Established Patient Charge Established Patient Point Assignment: 95 Established Patient Point Charge: EP Level 3 (80-115) MA Intake Visit Data Collection New Patient or Established: Established Patient (seen at [facility] [place] within 3 years) Reason for Visit:: 6 WEEK POST OP TKA Seen by Clinical Staff ONLY (RN/MA): No Verbal consent obtained for Telemed visit?: No Parachute Accessories Attacher Required: Yes PCP or OBGYN visit in last 3 months: Yes Hx Now: No Do You Feel Safe at Home: Yes Authorities Contacted: N/A Questionairres Past Medical History Past Medical History Have you ever been diagnosed with any of the following: Neurological Problems Seizures: No Cardiology Problems Congestive Heart Failure: No Hypertension: Yes Hypotension: Yes Varicose Veins: Yes Respiratory Problems Chronic Obstructive Pulmonary Disease (COPD): No Stomache/Intestinal Problems Hepatitis: No Genital/Urinary Problems Renal Disease: No Reproductive Problems Previous Pregnancies: No Musculoskeletal Problems Arthritis: Yes Fibromyalgia: Yes Endocrine Problems Diabetes Mellitus Type 1: No Diabetes Mellitus Type 2: No Psychologic Problems Depression: Yes Anxiety: Yes Other Problems Hospitalization: No Shingles: No Blood Transfusions: No Anesthesia Reactions: Yes (severe nausea) Cancer: No Surgical History Hysterectomy: Yes Subjective Visit Visit for: follow up visit, post op #2 and knee Immunization / Flu Flu Vaccine in the Last 12 Months: No Flu Vaccine Exclusion Criteria: No Exclusion Criteria History of Present Illness Chief complaint: 2 WEEK POST OP Date of 1st surgery (if applicable): 01/23/2025 Chava is a pleasant 52-year-old female that presents today for evaluation of her bilateral knees. She is doing well status post total knee replacement. She reports the right knee is significantly worse than the recently replaced knee. Personal History Occupation: DISABLED Red flag PMH: BMI BMI Counceling provided: Yes Pain Pain level (0-10): 6 Pain duration: ALL DAY Pain location: inside (medial), outside (lateral), anterior and posterior Pain quality: sharp, dull and aching Pain timing: increases with activity Associated signs & symptoms: numbness Ambulatory data Ambulatory device: walker Treatments Improvement with previous injections: No Improvement with PT: No Improvement with NSAIDS: no Review of Systems Review of Systems: All systems negative unless otherwise noted in HPI.
[2025-03-14 11:07] VITALS: BP 125/83; PULSE 93; RESP 18; TEMP 36.5; O2SAT 96; BMI 32.2
--- NOTE | 2025-03-14 11:11 | XR_ITS ---
Examination: Bilateral knees 2 views Right lateral knee left lateral knee 2 views Bilateral axial knees single view TECHNIQUE: Bilateral AP knees standing single view, bilateral PA knees standing single view flexion Standing right lateral knee left lateral knee 2 views Bilateral axial knees single view total 5 views Date and time: March 14, 2025 1134 hours INDICATIONS: Bilateral knee pain, status post left knee replacement 60 weeks ago right knee pain several years. FINDINGS: Severe narrowing [id number] medial joint space right knee Moderate osteoarthritis right patellofemoral joint Total left knee arthroplasty. Satisfactory alignment No fractures IMPRESSION: Severe narrowing [id number] medial joint space right knee
== END 2025-03-14 11:18 | disposition home or self-care (01) ==
PROVIDERS: PCP Physician Assistant; Referring Provider Physician Assistant; Supervising Provider Orthopaedic Surgery Adult Reconstructive Orthopaedic Surgery; Visit Provider Orthopaedic Surgery Adult Reconstructive Orthopaedic Surgery
DX: M17.0 Bilateral primary osteoarthritis of knee (principal); M25.562 Pain in left knee; M25.561 Pain in right knee; Z96.652 Presence of left artificial knee joint; I10 Essential (primary) hypertension
CPT/HCPCS: 73564; 99213; G0463

== ENCOUNTER 2025-03-19 08:00 | Outpatient (RCR) | payer MEDICAID, SELFPAY ==
--- NOTE | 2025-02-21 14:21 | PT.OIERPT ---
PT OP Initial Eval Patient Information Outpatient Physical Therapy Treatment Date: 02/21/25 Visit Reasons: Left knee post op Medical Diagnosis: M17.12 Treatment Dx #1: L knee pain Treatment Dx #2: Dec L knee ROM Start of Care: 02/21/25 Date of Onset: 01/23/25 Smoking Status Smoking Status: Never smoker Initial Assessment Subjective: Pt is 54 yr old stateless speaking female s/p L TKA presents with walker and reports pain and difficulty with bending the knee. She is ambulating HH distances with the FWW. PMH: HTN, OA knees, anxiety Pt goal: less pain, more ROM Objective: L knee AROM: Flexion: 90 Extension: -5 deg SLR: 45 deg with lag Gait: antalgic with FWW STrength: Quads: 3+/5 HS: 3+/5 Assessment: Pt presentation consistent with post op TKA with decreased ROM, strength ? and WB tolerance. Pt lacks a few degrees of knee extension and flexion is limited by ? myofascial limitations and pain.? Pt requires skilled therapy to improve ROM ? and strength and has good rehab potential.? Eval followed by HEP with printout. Short Term and Intermediate Goals 1. Independent with HEP 2. Improved knee ROM to full extension to 110 deg flexion 3. Improved quad and hamstring strength to 4+/5 4. Improved ambulatory tolerance to community distances with symmetrical ?? gait pattern.??? Treatment Plan 1. Manual therapy ? 2. Therex ? 3. Modalities as indicated, moist heat, ice, estim Frequency and Duration: 2-3x a week for 18 sessions plus the evaluation Certification Dates: 02/21/25 to 05/23/25 Procedure Charges OP PT Eval Mod Complex 30 minutes: Yes
--- NOTE | 2025-02-27 08:42 | PT.ODAYNRPT ---
PT Outpatient Daily Note OP Daily Note Outpatient Physical Therapy Treatment Date: 02/27/25 Visit Reasons: Left knee post op Subjective: Pt reports L knee is painful and stiff. Objective: Please see flow sheet for ther ex list. Assessment: Pt demonstrates poor activity tolerance due to pain response, near end of session pt c/o high pain requesting to be done with interventions. Applied cold pack at end of session. Plan: Continue with poC. Length of Time (minutes) of Treatment: 30 Minutes Procedure Charges Therapeutic Exercise 30 minutes: Yes
--- NOTE | 2025-03-13 13:56 | PT.ODAYNRPT ---
PT Outpatient Daily Note OP Daily Note Outpatient Physical Therapy Treatment Date: 03/13/25 Visit Reasons: Left knee post op Subjective: Pt reports L knee is progressing, at this time most of her limitations are associated with pain in her R knee. Pt mentioned she has a doctors appointment tomorrow for her R knee. Pt continues to use FWW due to r knee pain. Objective: Please see flow sheet for ther ex list. Assessment: Modified interventions to avoid aggravating R LE pain. Focus on open chain strengthening for L knee. Plan: Continue with pOC. Length of Time (minutes) of Treatment: 30 Minutes Procedure Charges Therapeutic Exercise 30 minutes: Yes
--- NOTE | 2025-03-19 08:20 | PT.ODAYNRPT ---
PT Outpatient Daily Note OP Daily Note Outpatient Physical Therapy Treatment Date: 03/19/25 Visit Reasons: Left knee post op Subjective: The R knee hurts more than the replaced L knee Objective: See F/S for therex Assessment: Good improvement with knee flexion PROM to 115 deg and full extension Plan: Continue per POC Length of Time (minutes) of Treatment: 30 Minutes Procedure Charges Therapeutic Exercise 30 minutes: Yes
== END 2025-03-21 23:59 | disposition home or self-care (01) ==
LOC: CPTX 08:00
PROVIDERS: PCP Orthopaedic Surgery Adult Reconstructive Orthopaedic Surgery; Referring Provider Orthopaedic Surgery Adult Reconstructive Orthopaedic Surgery; Visit Provider Orthopaedic Surgery Adult Reconstructive Orthopaedic Surgery
DX: M25.562 Pain in left knee (principal); Z96.652 Presence of left artificial knee joint; M17.12 Unilateral primary osteoarthritis, left knee; I10 Essential (primary) hypertension
CPT/HCPCS: 97110; 97162

== ENCOUNTER 2025-04-11 09:30 | Outpatient (RCR) | payer MEDICAID, SELFPAY ==
--- NOTE | 2025-03-25 11:49 | PT.ODAYNRPT ---
PT Outpatient Daily Note OP Daily Note Outpatient Physical Therapy Treatment Date: 03/25/25 Visit Reasons: Left knee post op Subjective: The R knee hurts more than the replaced L knee Objective: See F/S for therex MT: PROM into flexion x5' Assessment: Good improvement with knee flexion PROM to 112 deg and full extension Plan: Continue per POC Length of Time (minutes) of Treatment: 30 Minutes Procedure Charges Therapeutic Exercise 30 minutes: Yes
--- NOTE | 2025-03-27 12:47 | PT.ODAYNRPT ---
PT Outpatient Daily Note OP Daily Note Outpatient Physical Therapy Treatment Date: 03/27/25 Visit Reasons: Left knee post op Subjective: Pt reports L knee is doing better, mentioned that the reason she limps is because of her R knee. Objective: Please see flow sheet for the elise list. Assessment: Pt demonstrates improved ROM into knee flexion. Plan: Continue with pOC. Length of Time (minutes) of Treatment: 30 Minutes Procedure Charges Therapeutic Exercise 30 minutes: Yes
--- NOTE | 2025-04-02 11:40 | PT.ODAYNRPT ---
PT Outpatient Daily Note OP Daily Note Outpatient Physical Therapy Treatment Date: 04/02/25 Visit Reasons: Left knee post op Subjective: Pt reports her L knee is doing better but her R knee is really painful today, is having a hard time walking. Objective: Please see flow sheet for ther ex list. Assessment: Pt c/o high R knee pain, focus on open chain interventions to accommodate pain. Plan: Continue with pOC. Length of Time (minutes) of Treatment: 30 Minutes Procedure Charges Therapeutic Exercise 30 minutes: Yes
--- NOTE | 2025-04-04 09:21 | PT.ODAYNRPT ---
PT Outpatient Daily Note OP Daily Note Outpatient Physical Therapy Treatment Date: 04/04/25 Visit Reasons: Left knee post op Subjective: Overall better Objective: See F/S for therex Assessment: Good improvement with AAROM into L knee flexion to 120 deg Plan: Continue per POC Length of Time (minutes) of Treatment: 30 Minutes Procedure Charges Therapeutic Exercise 30 minutes: Yes
--- NOTE | 2025-04-08 11:20 | PT.ODAYNRPT ---
PT Outpatient Daily Note OP Daily Note Outpatient Physical Therapy Treatment Date: 04/08/25 Visit Reasons: Left knee post op Subjective: Overall better Objective: See F/S for therex Assessment: Good improvement with AAROM into L knee flexion to 120 deg Plan: Continue per POC Length of Time (minutes) of Treatment: 30 Minutes Procedure Charges Therapeutic Exercise 30 minutes: Yes
--- NOTE | 2025-04-11 10:04 | PT.ODS1RPT ---
PT OP Progress/Discharge Note Date of Service: 04/11/25 Progress Note/DC Note Progress Note/Discharge Note: DC Note Patient Information Visit Reasons: Left knee post op Service Continue Service or Discharge: Discharge Discharge Date: 04/11/25 Status Subjective: The L knee feels stronger and she has mild to no pain but the R knee hurts. She is doing ADL's and walking normal distances. Objective: L knee ArOM: Flexion: 120 deg Extension: full Strength: Quads: 4+/5 HS: 4+/5 Gait: symmetrical Assessment: Pt has attended the eval and 9 Rx sessions with very good progress to meet all therapy goals. She has 120 deg flexion and full extension to meet that goal. Pt is ambulating community distances not limited by pain and has improved quad and HS strength of the L knee to 4+/5 to meet those goals. Plan: D/C with HEP Procedure Charges Therapeutic Exercise 30 minutes: Yes
== END 2025-04-21 23:59 | disposition home or self-care (01) ==
LOC: CPTX 09:30
PROVIDERS: PCP Orthopaedic Surgery Adult Reconstructive Orthopaedic Surgery; Referring Provider Orthopaedic Surgery Adult Reconstructive Orthopaedic Surgery; Visit Provider Orthopaedic Surgery Adult Reconstructive Orthopaedic Surgery
DX: M25.562 Pain in left knee (principal); Z96.652 Presence of left artificial knee joint; M17.12 Unilateral primary osteoarthritis, left knee; I10 Essential (primary) hypertension
CPT/HCPCS: 97110

== ENCOUNTER 2025-04-18 09:54 | Outpatient (AMB) | payer MEDICAID, SELFPAY ==
--- NOTE | 2025-04-18 10:02 | PD.ORTHCLVIS ---
Vital signs 04/18/25 10:06 Height 1.52 m Height Method Measured Weight 74.417 kg Weight Measurement Method Standing Scale BMI 32.2 BP 130/84 Blood Pressure Source Automatic Cuff Blood Pressure Location Left Upper Arm Position Sitting Respiration 18 Pulse 80 Pulse Source Monitor Temp 97.3 F Temp Source Temporal Artery Scan Pulse Oximetry (%) 96 Oxygen Delivery Method Room Air Med/Allergies Allergies & Medications Allergies No Known Allergies Allergy (Verified 04/18/25 10:06) Medication Reconciliation amlodipine 5 mg tablet 5 mg PO QDAY 09/20/19 [History Confirmed 04/18/25] estradiol 2 mg tablet 2 mg PO QDAY 07/12/23 [History Confirmed 04/18/25] losartan 100 mg-hydrochlorothiazide 25 mg tablet 1 tab PO QDAY 07/12/23 [History Confirmed 04/18/25] aspirin 81 mg tablet,delayed release 81 mg PO BID #60 tabs 01/23/25 [Rx Confirmed 04/18/25] doxycycline hyclate 100 mg tablet 100 mg PO BID #14 tabs 01/23/25 [Rx Confirmed 04/18/25] gabapentin 300 mg capsule 300 mg PO .qhs #30 caps 01/23/25 [Rx Confirmed 04/18/25] sennosides 8.6 mg-docusate sodium 50 mg tablet (Senna-S) 1 tab-cap PO QDAY #30 tabs 01/23/25 [Rx Confirmed 04/18/25] hydrocodone 7.5 mg-acetaminophen 325 mg tablet 1 tab PO Q6H PRN pain #28 tabs 02/07/25 [Rx Confirmed 04/18/25] Exam Exam Patient is in no acute distress and is cooperative with the examination today. Patient has a normal mood and affect. Breathing is nonlabored. In no respiratory distress. Bilateral extremities were evaluated and demonstrates sensation intact to light touch. Palpable pedal pulses are present. No significant edema is present. Left knee incision is clean dry intact. ROM 0-100 degrees Right knee demonstrates vcarus deformity. SHe has significant right knee arthritis of significant severity on recent weightbearing x-rays. She has bone and bone arthritis medially and osteophytes laterally. This is dated 03/14/2025 Assessment and Plan Problem List (1) Arthritis of both knees: Status: Acute Plan: Patient is a 52-year-old female with bilateral knee pain and osteoarthritis. She is status post left total knee replacement and is doing well. She reports she has significant right knee pain which is affecting her quality life and happiness. She feels like it her right knee was replaced she can get off the cane. She has failed significant 0 treatment 3 over 6 injections, anti-inflammatories, and formal physical therapy. She would like to get the right side done The nature and purpose of the total knee replacement, alternative method(s) of treatment, the material risks involved, and the possibility of complications were fully explained to the patient. The patient does NOT have any of the following contraindications to TKA: - Active infection of the knee joint, OR - Active systemic bacteremia, OR - Active skin infection or open wound at surgical site, OR - Neuropathic arthritis, OR - Severe, rapidly progressive neurological disease, OR - Severe medical condition that makes risks of surgery outweigh the potential benefit The patient was told the most common risks and complications associated with a total knee replacement include, but are not limited to: blood clots in the leg, fatal pulmonary embolism, dislocation of the prosthesis, intraoperative and postoperative fractures of the femur or tibia, infection, failure of the prosthesis or grafting materials, complications from anesthesia, reactions to blood transfusions, postoperative leg length inequality, instability of the knee replacement, nerve damage or injury, vascular injury, delayed wound healing, infection, other injury or even . In addition, there are risks associated with anesthesia given during this operation. Also, the patient was told that after undergoing a total knee replacement there may still be persistent pain or disability. The patient was informed that the success of this operation in part depends upon the mechanical devices which are going to be implanted and that these devices can fail or malfunction, and may need to be repaired or replaced and there are no guarantees as to the longevity of this device or its parts and that it or its parts could fail prematurely. The patient was also notified that during the course of surgery, there may be a need to use bone graft from donors, and that any bone graft used will be carefully screened for communicable diseases, including AIDS, hepatitis, Braxton-Creutzfeldt, or other diseases, but despite the screening procedures, there is a small chance that they could contract one of these diseases. Finally, the patient was asked to follow completely and fully with all advice and recommended treatments, and that recovery and ultimate outcome are affected by their compliance with recommended treatment. We discussed the risks, benefits and treatment alternatives, and the patient is interested in proceeding with surgery. We will try to set this up as expeditiously as possible. (2) Unilateral primary osteoarthritis, left knee: Status: Acute Office Procedures GNS Level of Care Nursing/Assessment Patient Status: Established Patient Nursing Assessment/Reassesment: Medication Reconciliation, Orthostatic Vitals, Update PMH in EMR and Vital Signs Coordination of Care: Complex Care and Chronic Disease 1-5, Education Complex Pt/Fam, Consent,records obtained, informed consent, Results/Orders obtained and Staff clarify orders Special Needs: Language special needs Established Patient Charge Established Patient Point Assignment: 105 Established Patient Point Charge: EP Level 3 (80-115) MA Intake Visit Data Collection New Patient or Established: Established Patient (seen at [facility] within 3 years) Reason for Visit:: LEFT TKA POST OP Seen by Clinical Staff ONLY (RN/MA): No Verbal consent obtained for Telemed visit?: No Instructor Ballroom Dancing Required: Yes PCP or OBGYN visit in last 3 months: Yes Hx Now: No Do You Feel Safe at Home: Yes Authorities Contacted: N/A Questionairres Past Medical History Past Medical History Have you ever been diagnosed with any of the following: Neurological Problems Seizures: No Cardiology Problems Congestive Heart Failure: No Hypertension: Yes Hypotension: Yes Varicose Veins: Yes Respiratory Problems Chronic Obstructive Pulmonary Disease (COPD): No Stomache/Intestinal Problems Hepatitis: No Genital/Urinary Problems Renal Disease: No Reproductive Problems Previous Pregnancies: No Musculoskeletal Problems Arthritis: Yes Fibromyalgia: Yes Endocrine Problems Diabetes Mellitus Type 1: No Diabetes Mellitus Type 2: No Psychologic Problems Depression: Yes Anxiety: Yes Other Problems Hospitalization: No Shingles: No Blood Transfusions: No Anesthesia Reactions: Yes (severe nausea) Cancer: No Surgical History Hysterectomy: Yes Subjective Visit Visit for: follow up visit, post op #2 and knee Immunization / Flu Flu Vaccine in the Last 12 Months: No Flu Vaccine Exclusion Criteria: No Exclusion Criteria History of Present Illness Chief complaint: LEFT TKA POST OP Date of 1st surgery (if applicable): 01/23/2025 Chava is a pleasant 52-year-old female that presents today for evaluation of her bilateral knees. She is doing well status post total knee replacement. She reports the right knee is significantly worse than the recently replaced knee. On the right knee the patient has tried NSAIDs, cortsone injections (x6), and formal physical therapy for 12 sessions Personal History Occupation: DISABLED Red flag PMH: BMI BMI Counceling provided: Yes Pain Pain level (0-10): 6 Pain duration: ALL DAY Pain location: inside (medial), outside (lateral), anterior and posterior Pain quality: sharp, dull and aching Pain timing: increases with activity Associated signs & symptoms: numbness Ambulatory data Ambulatory device: cane Treatments Improvement with previous injections: No Improvement with PT: No Improvement with NSAIDS: no Review of Systems Review of Systems: All systems negative unless otherwise noted in HPI.
[2025-04-18 10:06] VITALS: BP 130/84; PULSE 80; RESP 18; TEMP 36.3; O2SAT 96; BMI 32.2
== END 2025-04-18 10:23 | disposition home or self-care (01) ==
PROVIDERS: PCP Physician Assistant; Referring Provider Physician Assistant; Supervising Provider Orthopaedic Surgery Adult Reconstructive Orthopaedic Surgery; Visit Provider Orthopaedic Surgery Adult Reconstructive Orthopaedic Surgery
DX: M17.0 Bilateral primary osteoarthritis of knee (principal); M25.562 Pain in left knee; M25.561 Pain in right knee; Z96.652 Presence of left artificial knee joint; I10 Essential (primary) hypertension; M79.7 Fibromyalgia
CPT/HCPCS: 99213; G0463

== ENCOUNTER → 2025-05-07 | Outpatient (CLI) | payer MEDICAID, SELFPAY ==
--- NOTE | 2025-05-07 15:30 | XR_ITS ---
Examination: CT right lower extremity, without contrast. 2-D sagittal reconstructions. 2-D coronal reconstructions. 3-D reconstructions. Date and time of exam:May 07, 2025 1552 hrs. Indications: Diagnosis unilateral primary osteoarthritis right knee, right knee pain 3 years CTDI: vol (mGy):11 DLP: (mGycm):845 Technique: Multiple 1.25 mm axial sections of the right lower extremity without intravenous contrast. have been obtained. 2-D sagittal and coronal reconstructions have been obtained. 3-D reconstructions have been obtained. Low dose protocols were performed. One or more of the following dose reduction techniques were used; automated exposure control, adjustment of the mA and/or KV according to patient size, use of iterative reconstruction technique. Findings: Moderate osteopenia Moderate narrowing right hip joint No right hip fracture or dislocation. Severe narrowing [id number] medial joint space right knee Significant osteoarthritis lateral patellofemoral joints Impression: Severe narrowing, [id number], medial joint space right knee
== END | disposition home or self-care (01) ==
PROVIDERS: PCP Physician Assistant; Referring Provider Orthopaedic Surgery Adult Reconstructive Orthopaedic Surgery; Visit Provider Orthopaedic Surgery Adult Reconstructive Orthopaedic Surgery
DX: M25.861 Other specified joint disorders, right knee (principal)
CPT/HCPCS: 73700

== ENCOUNTER 2025-05-13 09:55 | Day surgery (SDC) | payer MEDICAID, SELFPAY ==
--- NOTE | 2025-05-08 09:00 | EKG_ITS ---
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
[2025-05-08 09:59] VITALS: BMI 33.0
[2025-05-08 10:47] LABS: Basophils # (Auto) 0.0 Thou/mm3 (0.0-0.2); Basophils % (Auto) 0 % (0-2.5); Eosinophils # (Auto) 0.2 Thou/mm3 (0.0-0.5); Eosinophils % (Auto) 3 % (0-10); Hematocrit 37.0 % (36.0-46.0); Hemoglobin 12.1 g/dL (12.0-16.0); Immature Granulocytes Auto 0.01 Thou/mm3 (0.00-0.00); Lymphocytes # (Auto) 2.3 Thou/mm3 (1.0-4.8); Lymphocytes % (Auto) 29 % (10-50); Mean Corpuscular HGB Conc 32.7 g/dl (31.0-37.0); Mean Corpuscular Hemoglobin 29.8 pg (25.0-35.0); Mean Corpuscular Volume 91 fL (80-100); Monocytes # (Auto) 0.4 Thou/mm3 (0.0-0.8); Monocytes % (Auto) 5 % (0-12); Neutrophils # (Auto) 4.9 Thou/mm3 (1.8-7.7); Neutrophils % (Auto) 63 % (37-80); Nucleated Red Blood Cell # 0.00 Thou/mm3 (0.00-0.00); Nucleated Red Blood Cell % 0 /100 WBC (0); Platelet Count 300 Thou/mm3 (140-440); RDW Standard Deviation 47.2 fL (36.4-46.3); Red Blood Count 4.06 Miln/mm3 (4.00-5.20); White Blood Count 7.9 Thou/mm3 (3.6-11.0)
[2025-05-08 10:54] LABS: Alanine Aminotransferase 18 U/L (10-49); Albumin, Serum 4.2 gm/dL (3.5-5.0); Albumin/Globulin Ratio 1.9 (1.2-2.2); Alkaline Phosphatase 86 U/L (46-116); Anion Gap 9 (7-16); Aspartate Amino Transferase 18 U/L (0-34); BUN/Creatinine Ratio 17 Ratio (12-20); Bilirubin,Total 0.5 mg/dL (0.3-1.2); Blood Urea Nitrogen 10 mg/dL (9-23); Calcium 9.3 mg/dL (8.3-10.6); Calcium (Corrected) 9.3 mg/dL (8.5-10.1); Carbon Dioxide 30.2 mMol/L (20.0-31.0); Chloride 103 mMol/L (98-107); Creatinine (Component) 0.6 mg/dL (0.6-1.3); Estimated Creatinine Clearance 91.8 mL/min (>60); Globulin 2.2 gm/dL (2.3-3.5); Glucose 97 mg/dL (74-106); Osmolality,Calculated 282 (275-295); Potassium 3.4 mMol/L (3.4-5.1); Sodium 142 mMol/L (136-145); Total Protein 6.4 gm/dL (5.7-8.2); eGFR > 60 See Note
[2025-05-08 10:55] LABS: INR 1.0 (0.9-1.3); Partial Thromboplastin Time 27.1 Seconds (22.0-36.0); Prothrombin Time 10.6 Seconds (9.0-12.2)
[2025-05-13] VITALS (17 sets, daily range): BP systolic 101–125; BP diastolic 62–79; PULSE 67–86; RESP 15–20; TEMP 36.2–37.1; O2SAT 93–100; BMI 32.7; BMI 13.0
[2025-05-13] MEDS: PREGABALIN 75 MG CAPSULE PO (10:42)
[2025-05-13] MEDS: ACETAMINOPHEN 325 MG TABLET 650 MG PO (10:42)
[2025-05-13] MEDS: MELOXICAM 7.5 MG TABLET PO (10:42)
--- NOTE | 2025-05-13 11:39 | ESOP_ITS ---
Date of Procedure 05/13/25 Pre Op Diagnosis right knee osteoarthritis Post Op Diagnosis right knee osteoarthritis Procedure right total knee replacement joanna Findings full thickness cartilage loss and osteophytes Procedure Description Indication: The patient has a long history of right knee pain. X-rays show degenerative arthritis involving the knee. Over the past several years the patient has had increasing pain, progressive limitation in function. He has failed conservative measures including activity modification, physical therapy, injections, anti- inflammatories, and assistive devices. After a lengthy discussion of the risks and benefits, the patient presents now for total knee replacement. The nature and purpose of the total knee replacement, alternative method(s) of treatment, the material risks involved, and the possibility of complications were fully explained to the patient. The patient was told the most common risks and complications associated with a total knee replacement include, but are not limited to blood clots in the leg, fatal pulmonary embolism, dislocation of the prosthesis, intraoperative and postoperative fractures of the femur or tibia, infection, failure of the prosthesis or grafting materials, complications from anesthesia, reactions to blood transfusions, postoperative leg length inequality, instability of the knee replacement, nerve damage or injury, vascular injury, delayed wound healing, infections, other injury or even . In addition, there are risks associated with anesthesia given during this operation, temporary or permanent numbness on the skin lateral to the incision can be a complication unique to total knee surgery, and kneeling can be painful after knee replacement surgery. Also, the patient was told that after undergoing a total knee replacement there may still be pain or disability. We discussed with the patient that we will be using a robot-assisted technology. We discussed that there is a possibility of converting to manual instrumentation. The patient was informed that the success of this operation in part depends upon the mechanical devices which are going to be implanted and that these devices can fail or malfunction, and may need to be repaired or replaced and there are no guarantees as to the longevity of this device or its part and that it or its parts could fail prematurely. Finally, the patient was asked to follow completely and fully with all advice and recommended treatments, and that recovery and ultimate outcome are affected by their compliance with recommended treatment. Surgical technique: Patient was marked and consented in the pre-operative area. The patient was brought to the operating room and placed on the operating table in a supine position. Prior to positioning, a timeout procedure was performed between the surgeon, the anesthesiologist, and the nursing staff where the patient and the operative side were identified and confirmed. After adequate general anesthetic was obtained, the right lower extremity was prepped and draped in the usual sterile fashion. A weight based dose of Cefazolin were administered within 1 hour prior to incision. The robot was preregistered and calibrated before the incision. The extremity was exsanguinated with an esmarch badge and tourniquet inflated to 250mmHg. A midline incision was made. A median parapatellar arthrotomy was made. The patella was subluxed laterally. A medial release was performed to expose the medial tibia. His femoral and tibial pins were placed through an intra incisional manner for both cases. Every effort was made to ensure that the distalmost aspect of the pin was hung in the second cortex. The arrays were then tightened several times to ensure that it was fixed for the remainder of the case. Both femoral and tibial checkpoints were then placed. We then went through the registration process of the bone. We then assessed the knee deformity and attempted to correct it. We also used the robot to aid in judging laxity in both extension and flexion. Final based on laxity and alignment we changed the preoperative assessment to obtain proper proper implant positioning and to correct deformity. Attention was then placed to the tibia. We made a tibial cut using the robot ensuring that both the MCL and the patella tendon were protected with retractors. We then went to the femur and made the posterior cut followed by the anterior cut and the anterior chamfer. The bone was then removed and we made a distal femur cut and a posterior chamfer cut. We verified all cuts. A trial reduction was performed with a size 1 femoral component and a size 1 keeled tibial component. T The patella tracked centrally, and no lateral retinacular release was necessary. The trial implants were removed. The arrays, pins, and checkpoints were all removed. We performed a verification that all p ins were removed. The cut bone surfaces were lavaged. A size 1 right femoral component, a size 1 keeled tibial component were impacted into position. The knee was felt to be well balanced in the sagittal and coronal plane. The final 2x10 mm cruciate- substituting articular insert was impacted into the tibial tray. The knee was brought out to full extension, flexed up to 120 degrees. It was stable to varus and valgus stress and appropriately balanced in flexion and extension. The wounds were copiously irrigated following deflation of tourniquet. The medial retinaculum was reapproximated with #1 vicryl and quill. The subcutaneous tissues were closed with 0 and 2-0 interrupted Vicryl. The skin was closed with 3-0 Monofilament V loc suture. A sterile dressing was applied. The patient was transferred to a bed and brought to recovery in stable condition. The patient tolerated the procedure well. There were no intraoperative complications. Sponge and needle counts were correct times 2. As the attending surgeon, Laverne artis I was present and performed the entire operation. Grafts/Implants Size 1 CR Femur Size 1 Tibia0 11mm poly CS Anesthesia spinal Pathology / specimen None Pathology comment: none Estimated Blood Loss 150 Condition Stable Disposition same day Surgeon Jose Reynoso MD Surgical Staff Operation Date: 05/13/25 14:00 <No data on this case meets the specified criteria>
--- NOTE | 2025-05-13 13:15 | XR_ITS ---
Examination: Right knee 2 views Technique one AP lateral right knee 2 views Date and time: May 13, 2025 1341 hours INDICATIONS: Postop knee replacement today. FINDINGS: Total right knee arthroplasty. Satisfactory alignment Moderate osteopenia No fracture IMPRESSION: Total right knee arthroplasty with satisfactory alignment
--- NOTE | 2025-05-13 13:22 | SUR.PHASEI ---
pt received from OR in recovery bay 2. pt asleep but responds to voice, breathing unlabored on oxymask 6l. v/s stable. pt dressing to right lower extremity cdi. report received from Gregg MAY and Mariel SY.
--- NOTE | 2025-05-13 14:27 | SUR.PHASEII ---
pt able to tolerate oral fluids without difficulty swallowing or nausea/vomiting.
--- NOTE | 2025-05-13 17:38 | SUR.PHASEII ---
pt awake and alert, breathing unlabored on room air. v/s stable. pt dressing to right lower extremity cdi. pt cleared by physical therapist Enedelia. pt able to ambulate to pacu bathroom using walker. d/c instructions given with sister Iliana in room using wrapper caser Norma [id number], all questions answered. pt d/c via wheelchair with all belongings.
== END 2025-05-13 17:38 | disposition home or self-care (01) ==
PROVIDERS: Anesthesiology; PCP Physician Assistant; Referring Provider Orthopaedic Surgery Adult Reconstructive Orthopaedic Surgery; Visit Provider Orthopaedic Surgery Adult Reconstructive Orthopaedic Surgery
PROC: (CPT 27447; principal; 2025-05-13 13:45)
DX: M17.11 Unilateral primary osteoarthritis, right knee (principal); M25.761 Osteophyte, right knee; Z01.810 Encounter for preprocedural cardiovascular examination
CPT/HCPCS: 27447; 20985; 36415; 73560; 80053; 85025; 85610; 85730; 93005; 97162; A4217; A4649; C1713; C1776; J0690; J1885; J2250; J2405; J2704; J2795; J3010; J3490; J7999; A4648; A9270

== ENCOUNTER 2025-05-23 09:49 | Outpatient (AMB) | payer MEDICAID, SELFPAY ==
--- NOTE | 2025-05-23 09:55 | PD.ORTHCLVIS ---
Vital signs 05/23/25 10:42 Height 1.52 m Height Method Stated Weight 74.417 kg Weight Measurement Method Standing Scale BMI 32.2 BP 132/81 H Blood Pressure Source Automatic Cuff Blood Pressure Location Right Upper Arm Position Sitting Respiration 20 Pulse 85 Pulse Source Monitor Temp 97.3 F Temp Source Temporal Artery Scan Pulse Oximetry (%) 94 L Oxygen Delivery Method Room Air Med/Allergies Allergies & Medications Allergies No Known Allergies Allergy (Verified 05/23/25 10:43) Medication Reconciliation amlodipine 5 mg tablet 5 mg PO QDAY 09/20/19 [History Confirmed 05/23/25] estradiol 2 mg tablet 2 mg PO QDAY 07/12/23 [History Confirmed 05/23/25] losartan 100 mg-hydrochlorothiazide 25 mg tablet 1 tab PO QDAY 07/12/23 [History Confirmed 05/23/25] acetaminophen 325 mg tablet 650 mg (2 x 325 mg) PO QID #90 tabs 05/13/25 [Rx Confirmed 05/23/25] aspirin 81 mg tablet,delayed release 81 mg PO BID #60 tabs 05/13/25 [Rx Confirmed 05/23/25] doxycycline hyclate 100 mg tablet 100 mg PO BID #14 tabs 05/13/25 [Rx Confirmed 05/23/25] gabapentin 300 mg capsule 300 mg PO .qhs #30 caps 05/13/25 [Rx Confirmed 05/23/25] sennosides 8.6 mg-docusate sodium 50 mg tablet (Senna-S) 1 tab-cap PO QDAY #30 tabs 05/13/25 [Rx Confirmed 05/23/25] oxycodone 5 mg tablet 5 mg PO Q6H PRN pain #28 tabs 05/23/25 [Rx Confirmed 05/23/25] Exam Exam Patient is in no acute distress and is cooperative with the examination today. Breathing is nonlabored. Patient has a normal mood and affect. Bilateral extremities were evaluated and demonstrates sensation intact to light touch. Palpable pedal pulses are present. No significant edema is present. Bilateral hips were examined. The patient has no pain with log roll of the hips. Internal rotation to 30 degrees and external rotation to 30 degrees is painless. Negative FADIR. Right knee was examined today. The right knee is in neutral alignment. The incision is clean dry and intact. SHe has significant right knee arthritis of significant severity on recent weightbearing x-rays. She has bone and bone arthritis medially and osteophytes laterally. This is dated 03/14/2025 Assessment and Plan Problem List (1) Arthritis of both knees: Status: Acute Plan: Patient is a 52-year-old female with bilateral knee pain and osteoarthritis. She is doing well status post right total knee replacement. Her sister is taking care of her. She would like a note for 2 weeks She is doing well and is using a walker. Will see her back for routine follow-up in 4 weeks with new ex (2) Unilateral primary osteoarthritis, left knee: Status: Acute Office Procedures GNS Level of Care Nursing/Assessment Patient Status: Established Patient Nursing Assessment/Reassesment: Medication Reconciliation, Update PMH in EMR and Vital Signs Coordination of Care: Complex Care and Chronic Disease 1-5, Education Complex Pt/Fam, Consent,records obtained, informed consent, Lab and Imaging orders, Results/Orders obtained and Staff clarify orders Special Needs: Language special needs Established Patient Charge Established Patient Point Assignment: 110 Established Patient Point Charge: EP Level 3 (80-115) MA Intake Visit Data Collection New Patient or Established: Established Patient (seen at [facility] within 3 years) Reason for Visit:: F/U 4 WEEK R TKA Seen by Clinical Staff ONLY (RN/MA): No Verbal consent obtained for Telemed visit?: No Office Equipment Mechanic Required: Yes PCP or OBGYN visit in last 3 months: Yes Hx Now: No Do You Feel Safe at Home: Yes Authorities Contacted: N/A Questionairres Past Medical History Past Medical History Have you ever been diagnosed with any of the following: Neurological Problems Seizures: No Cardiology Problems Congestive Heart Failure: No Hypertension: Yes Hypotension: Yes Varicose Veins: Yes Respiratory Problems Chronic Obstructive Pulmonary Disease (COPD): No Stomache/Intestinal Problems Hepatitis: No Genital/Urinary Problems Renal Disease: No Reproductive Problems Previous Pregnancies: No Musculoskeletal Problems Arthritis: Yes Fibromyalgia: Yes Endocrine Problems Diabetes Mellitus Type 1: No Diabetes Mellitus Type 2: No Psychologic Problems Depression: Yes Anxiety: Yes Other Problems Hospitalization: No Shingles: No Blood Transfusions: No Blood Transfusion Reaction: No Anesthesia Reactions: No Clostridium Difficile: No Cancer: No Surgical History Hysterectomy: Yes Subjective Visit Visit for: follow up visit, post op #2 and knee Immunization / Flu Flu Vaccine in the Last 12 Months: No Flu Vaccine Exclusion Criteria: No Exclusion Criteria History of Present Illness Chief complaint: LEFT TKA POST OP Date of 1st surgery (if applicable): 01/23/2025 Chava is a pleasant 52-year-old female that presents today for evaluation of her bilateral knees. She is now 2-week status post right total knee replacement and is doing well Personal History Occupation: DISABLED Red flag PMH: BMI BMI Counceling provided: Yes Pain Pain level (0-10): 6 Pain duration: ALL DAY Pain location: inside (medial), outside (lateral), anterior and posterior Pain quality: sharp, dull and aching Pain timing: increases with activity Associated signs & symptoms: numbness Ambulatory data Ambulatory device: cane Treatments Improvement with previous injections: No Improvement with PT: No Improvement with NSAIDS: no Review of Systems Review of Systems: All systems negative unless otherwise noted in HPI.
[2025-05-23 10:42] VITALS: BP 132/81; PULSE 85; RESP 20; TEMP 36.3; O2SAT 94; BMI 32.2
== END 2025-05-23 10:03 | disposition home or self-care (01) ==
LOC: HODSRG 09:49
PROVIDERS: Supervising Provider Orthopaedic Surgery Adult Reconstructive Orthopaedic Surgery; Visit Provider Orthopaedic Surgery Adult Reconstructive Orthopaedic Surgery
DX: Z47.1 Aftercare following joint replacement surgery (principal); Z96.651 Presence of right artificial knee joint; M25.562 Pain in left knee; M25.561 Pain in right knee; M17.12 Unilateral primary osteoarthritis, left knee; I10 Essential (primary) hypertension
CPT/HCPCS: 99213; G0463

== ENCOUNTER 2025-06-19 08:53 | Outpatient (RCR) | payer MEDICAID, SELFPAY ==
--- NOTE | 2025-06-19 13:57 | PT.OIERPT ---
PT OP Initial Eval Patient Information Outpatient Physical Therapy Treatment Date: 06/19/25 Visit Reasons: TKA Medical Diagnosis: M17.0 Treatment Dx #1: R knee pain Treatment Dx #2: Dec R knee ROM Start of Care: 06/19/25 Date of Onset: 05/13/25 DOS Smoking Status Smoking Status: Never smoker Initial Assessment Subjective: Pt is 54 yr old setswana speaking female s/p R TKA reports pain and difficulty with bending the knee. She is ambulating HH distances and limited community distances PMH: HTN, OA knees, anxiety Pt goal: less pain, more ROM Objective: R knee AROM: Flexion: 95 Extension: -5 deg SLR: 45 deg with lag Gait: antalgic with FWW Strength: Quads: 3+/5 HS: 3+/5 Assessment: Pt presentation consistent with post op R TKA with decreased ROM, strength ? and WB tolerance. Pt lacks a few degrees of knee extension and flexion is limited by ? myofascial limitations and pain.? Pt requires skilled therapy to improve ROM ? and strength and has good rehab potential.? Eval followed by HEP with printout. Short Term and Senior Analysis Specialist Goals 1. Independent with HEP 2. Improved knee ROM to full extension to 110 deg flexion 3. Improved quad and hamstring strength to 4/5 4. Improved ambulatory tolerance to community distances with symmetrical ?? gait pattern.??? Treatment Plan 1. Manual therapy ? 2. Therex ? 3. Modalities as indicated, moist heat, ice, estim Frequency and Duration: 2-3x a week for 18 sessions plus the evaluation Certification Dates: 06/19/25 to 09/17/25 Procedure Charges OP PT Eval Mod Complex 30 minutes: Yes
== END 2025-06-21 23:59 | disposition home or self-care (01) ==
LOC: CPTX 08:53
PROVIDERS: PCP Orthopaedic Surgery Adult Reconstructive Orthopaedic Surgery; Referring Provider Orthopaedic Surgery Adult Reconstructive Orthopaedic Surgery; Visit Provider Orthopaedic Surgery Adult Reconstructive Orthopaedic Surgery
DX: M25.561 Pain in right knee (principal); Z96.651 Presence of right artificial knee joint; I10 Essential (primary) hypertension
CPT/HCPCS: 97162

== ENCOUNTER 2025-06-25 09:49 | Outpatient (AMB) | payer MEDICAID, SELFPAY ==
--- NOTE | 2025-06-25 10:16 | ORTHONT_ITS ---
Vital signs 06/25/25 10:20 Height 1.52 m Height Method Stated Weight 74.021 kg Weight Measurement Method Standing Scale BMI 32.0 BP 118/49 L Blood Pressure Source Automatic Cuff Blood Pressure Location Left Upper Arm Position Sitting Respiration 18 Pulse 81 Pulse Source Monitor Temp 97.2 F Temp Source Temporal Artery Scan Pulse Oximetry (%) 92 L Oxygen Delivery Method Room Air Med/Allergies Allergies & Medications Allergies No Known Allergies Allergy (Verified 06/25/25 10:20) Medication Reconciliation amlodipine 5 mg tablet 5 mg PO QDAY 09/20/19 [History Confirmed 06/25/25] estradiol 2 mg tablet 2 mg PO QDAY 07/12/23 [History Confirmed 06/25/25] losartan 100 mg-hydrochlorothiazide 25 mg tablet 1 tab PO QDAY 07/12/23 [History Confirmed 06/25/25] acetaminophen 325 mg tablet 650 mg (2 x 325 mg) PO QID #90 tabs 05/13/25 [Rx Confirmed 06/25/25] aspirin 81 mg tablet,delayed release 81 mg PO BID #60 tabs 05/13/25 [Rx Confirmed 06/25/25] doxycycline hyclate 100 mg tablet 100 mg PO BID #14 tabs 05/13/25 [Rx Confirmed 06/25/25] gabapentin 300 mg capsule 300 mg PO .qhs #30 caps 05/13/25 [Rx Confirmed 06/25/25] sennosides 8.6 mg-docusate sodium 50 mg tablet (Senna-S) 1 tab-cap PO QDAY #30 tabs 05/13/25 [Rx Confirmed 06/25/25] oxycodone 5 mg tablet 5 mg PO Q6H PRN pain #28 tabs 05/23/25 [Rx Confirmed 06/25/25] oxycodone 5 mg tablet 5 mg PO Q6H PRN pain #28 tabs 06/07/25 [Rx Confirmed 06/25/25] Exam Exam Patient is in no acute distress and is cooperative with the examination today. Breathing is nonlabored. Patient has a normal mood and affect. Bilateral extremities were evaluated and demonstrates sensation intact to light touch. Palpable pedal pulses are present. No significant edema is present. Bilateral hips were examined. The patient has no pain with log roll of the hips. Internal rotation to 30 degrees and external rotation to 30 degrees is painless. Negative FADIR. Right knee was examined today. The right knee is in neutral alignment. The incision is clean dry and intact. Assessment and Plan Problem List (1) Arthritis of both knees: Status: Acute Plan: Patient is a 52-year-old female with bilateral knee pain and osteoarthritis. She is doing well status post right total knee replacement. We will see her back in 2 months (2) Unilateral primary osteoarthritis, left knee: Status: Acute Office Procedures GNS Level of Care Nursing/Assessment Patient Status: Established Patient Nursing Assessment/Reassesment: Medication Reconciliation, Update PMH in EMR and Vital Signs Coordination of Care: Complex Care and Chronic Disease 1-5, Education Complex Pt/Fam, Consent,records obtained, informed consent, Results/Orders obtained and Staff clarify orders Special Needs: Language special needs Established Patient Charge Established Patient Point Assignment: 95 Established Patient Point Charge: EP Level 3 (80-115) MA Intake Visit Data Collection New Patient or Established: Established Patient (seen at [facility] within 3 years) Reason for Visit:: 4 WEEK R TKA Seen by Clinical Staff ONLY (RN/MA): No Verbal consent obtained for Telemed visit?: No Shop Clerk Required: Yes PCP or OBGYN visit in last 3 months: Yes Hx Now: No Do You Feel Safe at Home: Yes Authorities Contacted: N/A Questionairres Past Medical History Past Medical History Have you ever been diagnosed with any of the following: Neurological Problems Seizures: No Cardiology Problems Congestive Heart Failure: No Hypertension: Yes Hypotension: Yes Varicose Veins: Yes Respiratory Problems Chronic Obstructive Pulmonary Disease (COPD): No Stomache/Intestinal Problems Hepatitis: No Genital/Urinary Problems Renal Disease: No Reproductive Problems Previous Pregnancies: No Musculoskeletal Problems Arthritis: Yes Fibromyalgia: Yes Endocrine Problems Diabetes Mellitus Type 1: No Diabetes Mellitus Type 2: No Psychologic Problems Depression: Yes Anxiety: Yes Other Problems Hospitalization: No Shingles: No Blood Transfusions: No Blood Transfusion Reaction: No Anesthesia Reactions: No Clostridium Difficile: No Cancer: No Surgical History Hysterectomy: Yes Subjective Visit Visit for: follow up visit, post op #2 and knee Immunization / Flu Flu Vaccine in the Last 12 Months: No Flu Vaccine Exclusion Criteria: No Exclusion Criteria History of Present Illness Chief complaint: LEFT TKA POST OP Date of 1st surgery (if applicable): 01/23/2025 Chava is a pleasant 52-year-old female that presents today for evaluation of her bilateral knees. She is now 6-week status post right total knee replacement and is doing well Personal History Occupation: DISABLED Red flag PMH: BMI BMI Counceling provided: Yes Pain Pain level (0-10): 6 Pain duration: ALL DAY Pain location: inside (medial), outside (lateral), anterior and posterior Pain quality: sharp, dull and aching Pain timing: increases with activity Associated signs & symptoms: numbness Ambulatory data Ambulatory device: cane Treatments Improvement with previous injections: No Improvement with PT: No Improvement with NSAIDS: no Review of Systems Review of Systems: All systems negative unless otherwise noted in HPI.
[2025-06-25 10:20] VITALS: BP 118/49; PULSE 81; RESP 18; TEMP 36.2; O2SAT 92; BMI 32.0
--- NOTE | 2025-06-25 10:27 | XR_ITS ---
EXAMINATION: Bilateral knees 2 views Right lateral knee left lateral knee 2 views Bilateral axial knee single view TECHNIQUE: Bilateral AP knees standing single view, bilateral PA knees standing single view flexion Standing right lateral knee left lateral knee 2 views Bilateral Axuni single view Date and time: June 25, 2025, 10:39 a.m. INDICATIONS: Right knee surgery May 13, 2025 left knee pain post surgery 4 months ago. FINDINGS: Bilateral total knee arthroplasties. Satisfactory alignment No loosening of the prosthetic components No fractures IMPRESSION: Bilateral total knee arthroplasties with satisfactory alignment
== END 2025-06-25 10:31 | disposition home or self-care (01) ==
LOC: HODSRG 09:49
PROVIDERS: Supervising Provider Orthopaedic Surgery Adult Reconstructive Orthopaedic Surgery; Visit Provider Orthopaedic Surgery Adult Reconstructive Orthopaedic Surgery
DX: Z47.1 Aftercare following joint replacement surgery (principal); Z96.651 Presence of right artificial knee joint; M17.12 Unilateral primary osteoarthritis, left knee; I10 Essential (primary) hypertension
CPT/HCPCS: 73564; 99213; G0463

== ENCOUNTER 2025-07-16 09:00 | Outpatient (RCR) | payer MEDICAID, SELFPAY ==
--- NOTE | 2025-06-24 10:54 | PT.ODAYNRPT ---
PT Outpatient Daily Note OP Daily Note Outpatient Physical Therapy Treatment Date: 06/24/25 Visit Reasons: RT TKA Subjective: The R knee hurts more than the L Objective: See f/S for therex MT: PROM into flexion x7' Assessment: Good improvement into flexion to 110 deg with overpressure Plan: Continue per POC Length of Time (minutes) of Treatment: 30 Minutes Procedure Charges Therapeutic Exercise 30 minutes: Yes
--- NOTE | 2025-06-26 10:49 | PT.ODAYNRPT ---
PT Outpatient Daily Note OP Daily Note Outpatient Physical Therapy Treatment Date: 06/26/25 Visit Reasons: RT TKA Subjective: R knee pain with bending Objective: See f/S for therex Assessment: Good improvement into flexion to 110 deg with AAROM strap exercise Plan: Continue per POC Length of Time (minutes) of Treatment: 30 Minutes Procedure Charges Therapeutic Exercise 30 minutes: Yes
--- NOTE | 2025-06-28 14:23 | PT.ODAYNRPT ---
PT Outpatient Daily Note OP Daily Note Outpatient Physical Therapy Treatment Date: 06/28/25 Visit Reasons: RT TKA Subjective: Pt reports knee is doing better, feels like walking has improved. Objective: Please see flow sheet for ther ex list. Assessment: Pt demonstrates improved gait pattern, can ambulate short distance without AD with minimal antalgic gait. Plan: Continue with pOC. Length of Time (minutes) of Treatment: 30 Minutes Procedure Charges Therapeutic Exercise 30 minutes: Yes
--- NOTE | 2025-07-08 13:37 | PT.ODAYNRPT ---
PT Outpatient Daily Note OP Daily Note Outpatient Physical Therapy Treatment Date: 07/08/25 Visit Reasons: RT TKA Subjective: R knee pain with bending Objective: See f/S for therex Assessment: Good improvement into flexion to 114 deg with AAROM strap exercise Plan: Continue per POC Length of Time (minutes) of Treatment: 30 Minutes Procedure Charges Therapeutic Exercise 30 minutes: Yes
--- NOTE | 2025-07-11 09:59 | PT.ODAYNRPT ---
PT Outpatient Daily Note OP Daily Note Outpatient Physical Therapy Treatment Date: 07/11/25 Visit Reasons: RT TKA Subjective: R knee pain with bending Objective: See f/S for therex Assessment: Good improvement into flexion to 114 deg with AAROM strap exercise Plan: Continue per POC Length of Time (minutes) of Treatment: 30 Minutes Procedure Charges Therapeutic Exercise 30 minutes: Yes
--- NOTE | 2025-07-16 10:04 | PTNOTE_ITS ---
PT Outpatient Daily Note OP Daily Note Outpatient Physical Therapy Treatment Date: 07/16/25 Visit Reasons: RT TKA Subjective: Pt reports R knee is doing better. Objective: Please see flow sheet for ther ex list. Assessment: Pt instructed on SLB exercise, used B SENIOR PROJECT ACCOUNTANT to maintain balance due to min/mod sway. Plan: Progress per protocol. Length of Time (minutes) of Treatment: 30 Minutes Procedure Charges Therapeutic Exercise 30 minutes: Yes
== END 2025-07-21 23:59 | disposition home or self-care (01) ==
LOC: CPTX 09:00
PROVIDERS: PCP Orthopaedic Surgery Adult Reconstructive Orthopaedic Surgery; Referring Provider Orthopaedic Surgery Adult Reconstructive Orthopaedic Surgery; Visit Provider Orthopaedic Surgery Adult Reconstructive Orthopaedic Surgery
DX: Z47.1 Aftercare following joint replacement surgery (principal); Z96.651 Presence of right artificial knee joint; M25.561 Pain in right knee; R26.89 Other abnormalities of gait and mobility; I10 Essential (primary) hypertension
CPT/HCPCS: 97110

== ENCOUNTER 2025-08-20 11:30 | Outpatient (RCR) | payer MEDICAID, SELFPAY ==
--- NOTE | 2025-07-23 10:04 | PT.ODAYNRPT ---
PT Outpatient Daily Note OP Daily Note Outpatient Physical Therapy Treatment Date: 07/23/25 Visit Reasons: RT TKA Subjective: Pt reports R knee is doing ok, still feels like strength is not where she would like it to be. Pt c/o pain feels it is due to the cold weather. Objective: Please see flow sheet for ther ex list. Assessment: Progressing strengthening interventions, pt favors L side and demonstrates excessive trunk flexion during squat exercise. Pt required tactile cues and demonstration to perform squat with good mechanics. Plan: Continue with pOC. Length of Time (minutes) of Treatment: 30 Minutes Procedure Charges Therapeutic Exercise 30 minutes: Yes
--- NOTE | 2025-07-30 09:18 | PT.ODAYNRPT ---
PT Outpatient Daily Note OP Daily Note Outpatient Physical Therapy Treatment Date: 07/30/25 Visit Reasons: RT TKA Subjective: Overall better Objective: See f/S for therex Assessment: Difficulty squatting due to LBP but can do wall sits with low pain in the knee Plan: Continue per POC Length of Time (minutes) of Treatment: 30 Minutes Procedure Charges Therapeutic Exercise 30 minutes: Yes
--- NOTE | 2025-08-05 11:46 | PT.ODAYNRPT ---
PT Outpatient Daily Note OP Daily Note Outpatient Physical Therapy Treatment Date: 08/05/25 Visit Reasons: RT TKA Subjective: Overall better Objective: See f/S for therex Assessment: Difficulty squatting due to LBP but can do wall sits with low pain in the knee Plan: Continue per POC Length of Time (minutes) of Treatment: 30 Minutes Procedure Charges Therapeutic Exercise 30 minutes: Yes
--- NOTE | 2025-08-07 17:49 | PT.ODAYNRPT ---
PT Outpatient Daily Note OP Daily Note Outpatient Physical Therapy Treatment Date: 08/07/25 Visit Reasons: RT TKA Subjective: Overall better Objective: See f/S for therex Assessment: Difficulty squatting due to LBP but can do wall sits with low pain in the knee. She tends to lean to the L and has valgus knees with squatting. Plan: Continue per POC Length of Time (minutes) of Treatment: 30 Minutes Procedure Charges Therapeutic Exercise 30 minutes: Yes
--- NOTE | 2025-08-12 16:37 | PT.ODAYNRPT ---
PT Outpatient Daily Note OP Daily Note Outpatient Physical Therapy Treatment Date: 08/12/25 Visit Reasons: RT TKA Subjective: Overall better and less pain with ADL's Objective: See f/S for therex Assessment: Difficulty squatting due to LBP but can do wall sits with low pain in the knee. She tends to lean to the L and has valgus knees with squatting. Plan: Reassess Length of Time (minutes) of Treatment: 30 Minutes Procedure Charges Therapeutic Exercise 30 minutes: Yes
--- NOTE | 2025-08-20 12:58 | PTNOTE_ITS ---
PT Outpatient Daily Note OP Daily Note Outpatient Physical Therapy Treatment Date: 08/20/25 Visit Reasons: RT TKA Subjective: Pt reports knee has progressed today is last PT visit, would like to continue HEP independently at this time. Objective: Please see flow sheet for the elise list. R Knee AROM 0-113 deg. R knee PROM: 0- 117 deg. Assessment: ROM of R knee has improved and pt is ambulating without AD. Pt instructed and educated on HEP given a printout for pt to continue with exercises at home. Plan: Assess for D/c Note. Length of Time (minutes) of Treatment: 30 Minutes Procedure Charges Therapeutic Exercise 30 minutes: Yes
== END 2025-08-21 23:59 | disposition home or self-care (01) ==
LOC: CPTX 11:30
PROVIDERS: PCP Orthopaedic Surgery Adult Reconstructive Orthopaedic Surgery; Referring Provider Orthopaedic Surgery Adult Reconstructive Orthopaedic Surgery; Visit Provider Orthopaedic Surgery Adult Reconstructive Orthopaedic Surgery
DX: Z47.1 Aftercare following joint replacement surgery (principal); Z96.651 Presence of right artificial knee joint; M25.561 Pain in right knee; I10 Essential (primary) hypertension
CPT/HCPCS: 97110